=== PATIENT | female | born 1965 | race Caucasian/White ===

== ENCOUNTER 2018-02-19 08:17 | Outpatient (CLI) | payer BC ==
--- NOTE | 2018-02-19 09:46 | ULT ---
THYROID ULTRASOUND: DATE: 02/19/2018. HISTORY: Multinodular thyroid goiter. COMPARISON: None available. FINDINGS: The right lobe of the thyroid gland measures 4.8 cm x 2.1 cm x 1.7 cm with the left lobe measuring 4 cm x 1.2 cm x 1.3 cm. The thyroid isthmus measures 0.4 cm in AP dimensions which is mildly increased . There is a hypoechoic nodule seen within the thyroid isthmus which measures 0.9 cm. Within the infer ior pole right lobe of the thyroid gland, there is a 1.5 cm hypoechoic nodule. A 0.7 cm heterogeneous nodule is seen within the superior pole right lobe of the thyroid gland with e chogenic area seen centrally. No nodules are seen in the left lobe of the thyroid gland. IMPRESSION: Multinodular thyroid gland with the largest nodule in the inferior pole right lobe of the thyroid gla nd measuring approximately 1.5 cm. POS: KETTY
== END 2018-02-19 08:18 | disposition home or self-care (01) ==
LOC: BICULT 08:17
PROVIDERS: ATTEND Otolaryngology Plastic Surgery within the Head & Neck
DX: E04.2 Nontoxic multinodular goiter (principal)
CPT/HCPCS: 76536

== ENCOUNTER 2018-03-10 08:23 | Outpatient (CLI) | payer BC ==
--- NOTE | 2018-03-10 12:00 | ULT ---
LEFT BREAST ULTRASOUND: Date: 03/10/18 HISTORY: Abnormal mammogram. FINDINGS: Correlation is made with mammogram from today. Comparison made with breast ultrasound of 06/21/16. Sonographic evaluation of the left breast demonstrates multiple dilated ducts without internal mass. One of these likely corresponds to the finding on the mammogram. These findings are stable since the previous exams. IMPRESSION: BIRADS Category 2 - Benign findings. Return to annual mammographic screening. POS: OFF
== END 2018-03-10 08:24 | disposition home or self-care (01) ==
LOC: BICMAMMO 08:23
PROVIDERS: ATTEND Family Medicine
DX: R92.8 Other abnormal and inconclusive findings on diagnostic imaging of breast (principal); R92.2 Inconclusive mammogram; Z98.890 Other specified postprocedural states
CPT/HCPCS: 77066; G0279

== ENCOUNTER 2018-06-19 08:08 | Outpatient (CLI) | payer BC ==
--- NOTE | 2018-06-19 09:37 | ULT ---
ULTRASOUND PELVIC TRANSVAGINAL WITH DOPPLER: HISTORY: Postmenopausal bleeding: COMPARISON: None. FINDINGS: Real-time, aleman scale, and color evaluation of the pelvis was performed by transabdominal and transva ginal approach as well as spectral analysis. Uterus measures 8.8 x 4.4 x 4 cm. Endometrial thickness is 7 mm, abnormal in a patient with postmeno pausal bleeding. Multiple nabothian cysts of the uterus. There appears to be a calcified fibroid measuring a centimet er in the anterior uterine body. There is a hypoechoic focus in the lower uterine endometrium just d istal to the internal os which is cystic. The right ovary is not seen. The left ovary measures 2.7 x 2.2 x 1.5. There is adequate vascular fl ow. No free fluid in the pelvis. IMPRESSION: 1. Abnormally thickened endometrium measuring 7 mm. In a postmenopausal female this is abnormal and endometrial biopsy is recommended. 2. Complex solid and cystic area in the lower uterine segment at the endometrial cavity and just dis yaquelin to the internal os. This should be evaluated in real time with direct visualization. POS: CET
== END 2018-06-19 08:09 | disposition home or self-care (01) ==
LOC: BICULT 08:08
PROVIDERS: ATTEND Family Medicine
DX: N95.0 Postmenopausal bleeding (principal); R93.89 Abnormal findings on diagnostic imaging of other specified body structures; N83.8 Other noninflammatory disorders of ovary, fallopian tube and broad ligament
CPT/HCPCS: 76856